=== PATIENT | male | born 1950 | race Caucasian/White ===

== ENCOUNTER → 2016-09-25 | Outpatient (CLI) | payer MEDICARE, BC ==
[~2016-09-25] MED LIST: ACETAMINOPHEN 1000 MG/100 ML VIAL IV ONE; ARTIFICIAL TEARS OPTH OINT 3.5 APPLIC/3.5 GM TUBO ONE; ASPI81CH CHEW; BENA10TA PO; FAMOTIDINE 20 MG/2 ML VIAL ONE; GLYB2.5T3 PO; HYDR-3535 PO; MIDAZOLAM HCL 2 MG/2 ML VIAL ONE; MISC-163; MOBI15TA PO; SIMV10TA PO; ZANA4CAP PO; fentaNYL CITRATE 250 MCG/5 ML AMP ONE
[2016-09-25 14:41] LABS: AUTOMATED NEUTROPHIL # 3.8 TH/MM3 (1.8-7.7); BASOPHIL # 0.1 TH/MM3 (0-0.2); BASOPHIL % 1.1 % (0.0-2.0); EOSINOPHIL # 0.3 TH/MM3 (0-0.4); EOSINOPHIL % 4.2 % (0.0-4.0); HEMATOCRIT 39.4 % (39.0-51.0); HEMO FLAGS DIFF FINAL; LYMPH % 32.4 % (9.0-44.0); LYMPHOCYTE # 2.4 TH/MM3 (1.0-4.8); MEAN CELL VOLUME 96.1 FL (80.0-100.0); MEAN CORPUSCULAR HEMOGLOBIN 33.9 PG (27.0-34.0); MEAN CORPUSCULAR HGB CONC 35.2 % (32.0-36.0); MONO % 10.5 % (0.0-8.0); NEUT % 51.8 % (16.0-70.0); PLATELET COUNT 180 TH/MM3 (150-450); RED CELL DISTRIBUTION WIDTH 12.5 % (11.6-17.2); WHITE BLOOD COUNT 7.4 TH/MM3 (4.0-11.0)
[2016-09-25 14:46] LABS: APTT (PATIENT) 27.5 SEC (24.3-30.1); PROTHROMBIN TIME - PATIENT 10.5 SEC (9.8-11.6)
[2016-09-25 14:54] LABS: BACTERIA, URINE RARE /hpf; BLOOD, URINE SMALL (NEG); COMMENT (UR) CULT NOT INDICATED; CULTURE IF INDICATED CULT NOT INDICATED; GLUCOSE,URINE NEG (NEG); KETONE, URINE NEG (NEG); MUCUS URINE FEW /lpf (OCC); NITRITE,URINE NEG (NEG); PH, URINE 5.5 (5.0-8.5); URINE COLOR YELLOW (YELLW/STRAW)
[2016-09-25 15:15] LABS: ALT (GPT) 32 U/L (12-78); ANION GAP 3 MEQ/L (5-15); AST (GOT) 16 U/L (15-37); BICARBONATE 32.9 MEQ/L (21.0-32.0); BLOOD UREA NITROGEN 17 MG/DL (7-18); CHLORIDE 102 MEQ/L (98-107); GLOMERULAR FILTRATION RATE 114 ML/MIN (>89); GLUCOSE,FASTING 107 MG/DL (74-99); POTASSIUM 4.4 MEQ/L (3.5-5.1); SODIUM (NA) 138 MEQ/L (136-145)
[2016-09-25 15:17] LABS: ALKALINE PHOSPHATASE 68 U/L (45-117); TOTAL BILIRUBIN ADULT 0.5 MG/DL (0.2-1.0)
== END ==
LOC: CPRE 13:10
PROVIDERS: ATTEND Neurological Surgery
DX: Z01.812 Encounter for preprocedural laboratory examination (principal)
CPT/HCPCS: 36415; 80053; 81001; 85025; 85610; 85730; J0131; J2250; J3010

== ENCOUNTER 2016-09-26 08:10 | Observation (INO) | payer MEDICARE, BC ==
[~2016-09-26] VITALS: Ht 193 cm; Wt 116.0 kg
[~2016-09-26 08:10] MED LIST changes: -ACETAMINOPHEN 1000 MG/100 ML VIAL IV ONE; -ARTIFICIAL TEARS OPTH OINT 3.5 APPLIC/3.5 GM TUBO ONE; +BUPIVACAINE/EPINEPHRINE 0.5% PF 30 ML VIAL ONE; -FAMOTIDINE 20 MG/2 ML VIAL ONE; +GELFOAM SIZE 100 ONE; +GENTAMICIN SULFATE 80 MG/2 ML VIAL ONE; -HYDR-3535 PO; -MIDAZOLAM HCL 2 MG/2 ML VIAL ONE; -MISC-163; -MOBI15TA PO; +SODIUM CHLOR 0.9% 250 ML INJ 250 ML ONE; +THROMBIN (TOPICAL) 5,000 UNIT VIAL ONE; +VANCOMYCIN HCL 1000 MG VIAL ONE; -ZANA4CAP PO; +ceFAZolin 2 GM PREMIX 50 ML ONE; -fentaNYL CITRATE 250 MCG/5 ML AMP ONE; +methylPREDNISolone ACETATE 40 MG/ML VIAL ONE
[2016-09-26 09:12] VITALS: BP 118/78; PULSE 86; RESP 18; TEMP 98.1; O2SAT 96
[2016-09-26] MEDS ORDERED: INSULIN HUMAN REGULAR 1,000 UNITS/10 ML VIAL SQ PRN (09:15)
[2016-09-26] MEDS ORDERED: SODIUM CHLORID 0.9% 500 ML IV SCH (09:15)
[2016-09-26] MEDS ORDERED: METOPROLOL TARTRATE 25 MG TAB PO PRN (09:15)
[2016-09-26] MEDS ORDERED: LACTATED RINGER'S 1000 ML IV SCH (09:15)
[2016-09-26] MEDS ORDERED: FAMOTIDINE 20 MG/2 ML VIAL IV ONE (11:20)
[2016-09-26] MEDS ORDERED: MIDAZOLAM HCL 2 MG/2 ML VIAL IV ONE (11:20)
[2016-09-26] MEDS ORDERED: fentaNYL CITRATE 250 MCG/5 ML AMP IV ONE (11:45)
[2016-09-26] MEDS ORDERED: GELFOAM SIZE 100 ONE (11:47)
[2016-09-26] MEDS ORDERED: PHENYLEPH/NS 1000 MCG/10 ML SYR IV ONE (12:00)
[2016-09-26] MEDS ORDERED: ACETAMINOPHEN 1000 MG/100 ML VIAL IV ONE ×2 (12:00→12:15)
[2016-09-26] MEDS ORDERED: NEOSTIGMINE 3 MG/3 ML SYR IV ONE (12:00)
[2016-09-26] MEDS ORDERED: ONDANSETRON HCL 4 MG/2 ML VIAL IV PUSH ONE (12:00)
[2016-09-26] MEDS ORDERED: ARTIFICIAL TEARS OPTH OINT 3.5 APPLIC/3.5 GM TUBO EACH EYE ONE (12:00)
[2016-09-26] MEDS ORDERED: PROPOFOL 200 MG/20 ML AMP IV ONE (12:00)
[2016-09-26] MEDS ORDERED: ePHEDrine/NS 25 MG/5 ML SYR IV ONE (12:00)
[2016-09-26] MEDS ORDERED: LACTATED RINGER'S 1000 ML INJ 1,000 ML IV ONE (12:00)
[2016-09-26] MEDS ORDERED: SUGAMMADEX SODIUM 200 MG/2 ML VIAL IV PUSH ONE ×2 (12:21)
[2016-09-26] MEDS ORDERED: HYDR-3535 PO (13:44)
[2016-09-26] MEDS ORDERED: MORPHINE SULFATE 4 MG/ML INJ IV PUSH PRN ×2 (13:45)
[2016-09-26] MEDS ORDERED: SODIUM CHLORIDE 0.9% FLUSH 5 ML FLUSH IVF PRN (13:45)
[2016-09-26] MEDS ORDERED: ACETAMINOPHEN/HYDROcodone 325 MG/10 MG TAB PO PRN (13:45)
[2016-09-26] MEDS ORDERED: ACETAMINOPHEN 325 MG TAB PO PRN (13:45)
[2016-09-26] MEDS ORDERED: DO NOT ADM ANY ANTICOAGULANT DRUGS XX PRN (14:12)
[2016-09-26] MEDS ORDERED: *morphine SULFATE 8 MG/ML PERIprocedure ONLY ONE ×2 (14:28→14:52)
[2016-09-26] MEDS: NS + KCL 20 MEQ INJ 1,000 ML IV SCH (15:00)
--- NOTE | 2016-09-26 15:52 | RADRPT ---
EXAM DATE/TIME: 09/26/2016 11:53 [place] COMPARISON: No previous studies available for comparison. INDICATIONS : Lumbar spine L2-3 laminectomy. OR. MEDICAL HISTORY : Hypertension. Diabetes mellitus type II. SURGICAL HISTORY : Total knee replacement, right. ENCOUNTER: Initial ACUITY: 1 day PAIN SCORE: Non-responsive. LOCATION: Lumbar L2-3 FINDINGS: 2 coned down lateral views of the lumbar spine were obtained intraoperatively using a matrix camera. There is demonstrates spinal retractors posterior to the L3 level and a small metal probe posterior t o the L4-5 level. The study is labeled assuming 5 nonrib-bearing lumbar type vertebra. There is grade 1 anterior spondylolisthesis of L5 on S1 of approximately 1 cm. Degenerative disc changes are presen t at the L5-S1 level. CONCLUSION: Limited, localization exam. Xiang Dawkins MD on September 26, 2016 at 15:43 Board Certified Radiologist. This report was verified electronically.
--- NOTE | 2016-09-26 16:17 | PD.OP ---
Operative Report Date of Surgery: Sep 26, 2016 Preoperative Diagnosis: L2-3 right disk herniation Postoperative Diagnosis: L2-3 right disk herniation Procedure: Right L2-3 hemilaminectomy and microdiscectomy Anesthesia: general Surgeon: Reuben Hollingsworth Network Architect Manager(s): Britni Henriquez Operation and Findings: INDICATIONS FOR THE SURGICAL PROCEDURE Mr gomez is a 66 year-old male who presented with intractable back pain and clinical evidence of right L3 lower extremity radiculopathy. He was found to have a disk herniation and extrusion at L2-3 causing focal stenosis with significant mass effect on the neural structures which correlated with his clinical symptoms. He failed maximum nonsurgical management including multiple modalities of conservative treatment as well as pain management interventions by an interventional pain specialist. A surgical decompression were indicated as a last resort. The [id number] details of the procedure, indications, alternatives, risks and potential complications were fully discussed with the patient. The patient fully understood. All the questions were answered. No guarantees were given. The patient voiced requesting the procedure and signes informed consents. The patient was offered the alternative of delaying the procedure and continuing with nonsurgical management. DETAILS OF THE SURGICAL PROCEDURE After the induction of general anesthesia, endotracheal intubation was performed. A Brooke catheter, bilateral SUNDAR hose and sequential compression devices were placed and kept throughout the procedure. The patient was positioned prone on a Gregory table over a Prasad frame. All pressure points were carefully padded with eggcrate mattress. The eyes were tapped shut after ointment was applied by the anesthesiologist to prevent corneal abrasion. A Mendez hugger was placed over the exposed lower body to maintain control of the core body temperature. The lower lumbar region was prepped and draped in the usual sterile fashion. A spinal needle was placed for localization and an x- ray performed with a C-arm. A skin incision was made in the midline over the spinous processes L2=L3 with a #10 blade. Small subcutaneous bleeders were controlled with a bipolar and the dissection was carried out through the lumbar fascia exposing the spinous processes. A subperiosteal dissection was performed with a Norwood elevator and a Bovie over the L2-L3 spinous process lamina and facets on the right side. A microdiscectomy self-retaining retractor was placed on the incision and an x- ray was obtained with an instrument placed underneath the lamina. At this point in the procedure the operating microscope was draped in the usual sterile fashion and brought to the field. The rest of the surgical procedure was performed using microsurgical dissection technique with exception of the closure. Once the level was confirmed, a decompressive laminectomy was performed at L2- L3 on the right side using the TPS drill with an AM-8 drill bit. A medial facetectomy was performed and the superior free border of the ligamentum flavum was dissected with a ligament dissector and removed with a thin footplate 2 mm Kerrison The medial facetectomy allowed me to expose the S1 nerve root, which was identified and followed towards its exit in the foramen. Epidural veins located laterally to the dural sac were coagulated with a bipolar and incised with microscissors. Gentle medial retraction of the dural sac allowed inspection of the disc space. The patient had a disc herniation, causing mass effect over the exiting nerve root. The annulus fibrosus of the disc was coagulated with the bipolar and incised with an 11 blade. The extruded disc was carefully dissected from the surrounding tissue and removed with pituitary forceps. Then, a microdiscectomy was carried out in the standard fashion using straight and up-biting pituitary forceps. A good decompression of the dural sac and nerve root was achieved. The exit of the nerve root was inspected for residual disc fragments and hemostasis was secured with the bipolar. The incision was irrigated with a large amount of saline solution. A Valsalva maneuver failed to show any cerebrospinal fluid leak or bleeding. The decompression was assessed again and found to be satisfactory. The incision was then closed in layers. The fascia was closed with 0 Vicryl sutures in an interrupted fashion. The superficial fascia was closed with 0 Vicryl sutures. The fascia was infiltrated with 0.5% Marcaine with epinephrine 1:100,000 dilution. The subcutaneous tissue was irrigated then closed with 0 Vicryl and 3 -0 Vicryl. The skin was closed with 4-0 running subcuticular Vicryl. Dermabond Prineo was applied to the skin. A sterile dressing was applied. At the end of the procedure, the sponge, needle and instrument counts were all correct. Estimated blood loss was less than 50 cc. No blood transfusion was given. No intraoperative complications occurred. The patient received prophylactic antibiotics. The patient was then extubated and transferred to the recovery room in stable condition. Reuben Hollingsworth MD Sep 26, 2016 16:17
[2016-09-26 18:56] VITALS: BP 155/88; PULSE 100; RESP 20; TEMP 97.6; O2SAT 100
[2016-09-26] MEDS: ACETAMINOPHEN/HYDROcodone 325 MG/10 MG TAB PO PRN ×2 (18:57→22:41)
[2016-09-26] MEDS: SODIUM CHLORIDE 0.9% FLUSH 5 ML FLUSH IVF SCH (21:00)
[2016-09-26 21:30] VITALS: BP 150/81; PULSE 100; RESP 19; TEMP 98; O2SAT 96
[2016-09-26] MEDS: ceFAZolin 2 GM PREMIX 50 ML IV SCH (22:40)
[2016-09-26] MEDS: DOCUSATE SODIUM 100 MG CAP PO SCH (22:40)
[2016-09-27] MEDS: NS + KCL 20 MEQ INJ 1,000 ML IV SCH
[2016-09-27 00:07] VITALS: BP 149/80; PULSE 101; RESP 19; TEMP 97.9; O2SAT 97
[2016-09-27] MEDS: ceFAZolin 2 GM PREMIX 50 ML IV SCH ×2 (05:17→11:33)
[2016-09-27] MEDS: ACETAMINOPHEN/HYDROcodone 325 MG/10 MG TAB PO PRN (05:21)
[2016-09-27 05:40] VITALS: BP 123/64; PULSE 80; RESP 17; TEMP 97.5; O2SAT 95
[2016-09-27 07:37] VITALS: BP 147/83; PULSE 67; RESP 19; TEMP 97.9; O2SAT 97
[2016-09-27] MEDS: DOCUSATE SODIUM 100 MG CAP PO SCH (08:56)
[2016-09-27] MEDS ORDERED: PANTOPRAZOLE SOD 40 MG DELAYED RELEASE TAB PO SCH (09:00)
[2016-09-27] MEDS: SODIUM CHLORIDE 0.9% FLUSH 5 ML FLUSH IVF SCH (09:00)
--- NOTE | 2016-09-27 09:54 | HHI.DCPOC ---
Discharge Care Plan Diagnosis: (1) Status post lumbar laminectomy Goals to Promote Your Health * To prevent worsening of your condition and complications * To maintain your health at the optimal level Directions to Meet Your Goals Take your medications as prescribed Follow your dietary instruction Follow activity as directed Keep your appointments as scheduled Take your immunizations and boosters as scheduled If your symptoms worsen call your PCP, if no PCP go to Urgent Care Center or Emergency Room Smoking is Dangerous to Your Health. Avoid second hand smoke Call the 24-hour hour crisis hotline for domestic abuse at Chrystal Boucher Sep 27, 2016 09:54
--- NOTE | 2016-09-27 09:58 | HHI.DS ---
Discharge Summary Admission Date Sep 26, 2016 at 13:43 Discharge Date: Sep 27, 2016 Admitting Diagnosis s/p lumbar laminectomy (1) Status post lumbar laminectomy ICD Code: Z98.890 Brief History Mr. Hutchinson is a 66 year-old male who presented with intractable back pain and clinical evidence of right L3 lower extremity radiculopathy. He was found to have a disk herniation and extrusion at L2-3 causing focal stenosis with significant mass effect on the neural structures which correlated with his clinical symptoms. He failed maximum nonsurgical management including multiple modalities of conservative treatment as well as pain management interventions by an interventional pain specialist. A surgical decompression were indicated as a last resort. Imaging Last Impressions Lumbar Spine X-Ray 09/26/16 0000 Signed Impressions: Service Date/Time: Monday, September 26, 2016 11:53 - CONCLUSION: Limited, localization exam. Xiang Dawkins MD PE at Discharge Mr. Hutchinson is alert, in no apparent distress. Speech is fluent. Mentation intact. Incision is clean and dry, with dermabond prineo dressing intact. Cranial nerve examination: pupils to be equal, round and reactive to light. Extra-ocular movements are intact. Facial motor are normal and symmetrical. Gross hearing appears intact. Neck: soft, supple Muscle strength is 5/5 to both deltoid, biceps, triceps, and sealer sander in the upper extremities. 5/5 to both iliopsoas, quadriceps, hamstrings, plantarflexion and dorsiflexion in lower extremities. Sensory examination is intact to light touch in both the upper and lower extremities. Heart: NSR Lungs: clear Hospital Course Mr. Hutchinson underwent a right L2-3 hemilaminectomy and microdiscectomy on Sep 26, 2016. His surgery went well without complications. He will be discharged home in stable conditions. Wound care, activity restrictions, and signs and symptoms to watch for were discussed. Pt Condition on Discharge: Stable Discharge Disposition: Discharge Home Discharge Instructions DIET: Follow Instructions for: Heart Healthy Diet ACTIVITIES You can perform: Weight Bearing As Edward ADDITIONAL Activity Instructio: Avoid strenuous activities, heavy lifting, overhead activities, repetitive bending, twisting, pushing, pulling or any activities which might result in stress over the spine. Avoid situtation that will put at risk for falls. Use assistive device as needed for walking. Wear lumbar brace when out of bed. New Medications: Hydrocodone-Acetaminophen (Lortab) 10-325 Mg Tab 1 TAB PO Q8HR PRN PAIN #62 Ref 0 TAB Continued Medications: Aspirin (Aspirin) 81 Mg Chew 81 MG CHEW DAILY Ref 0 TAB Benazepril (Benazepril) 10 Mg Tab 20 MG PO HS Blood Pressure Management #30 Ref 0 TAB Glyburide (Glyburide) 2.5 Mg Tab 2.5 MG PO DAILY Take with meals at the same time each day Blood Sugar Management #30 Ref 0 TAB Simvastatin (Simvastatin) 10 Mg Tab 10 MG PO HS Cholesterol Management #30 Ref 0 TAB Chrystal Boucher Sep 27, 2016 09:58
[2016-09-27] MEDS ORDERED: MISC-163 (10:55)
[2016-09-27 11:50] VITALS: BP 146/86; PULSE 68; RESP 19; TEMP 97.4; O2SAT 95
[2017-01-11] MEDS ORDERED: MOBI15TA PO (09:45)
[2017-01-11] MEDS ORDERED: ZANA4CAP PO (09:45)
== END 2016-09-27 14:10 | disposition home or self-care (01) ==
LOC: HSDC 08:10 → HSDI 13:43 → N05A 18:03
PROVIDERS: ADMIT Neurological Surgery; ATTEND Neurological Surgery
DX: M51.16 Intervertebral disc disorders with radiculopathy, lumbar region (principal); M48.06 Spinal stenosis, lumbar region; I10 Essential (primary) hypertension; E11.9 Type 2 diabetes mellitus without complications; Z79.4 Long term (current) use of insulin; Z96.651 Presence of right artificial knee joint
CPT/HCPCS: 00630; 63030; 72020; 76000; 86850; 86900; 86901; 97162; G0378; J0131; J0690; J1580; J2270; J2370; J2405; J2710; J3370; J3480; J7050; J7120; L0627; G8987-GP; G8988-GP; J1030; J2250; J3010